=== PATIENT | female | born 1990 | race African-American/Black ===

== ENCOUNTER 2022-08-12 10:28 | Outpatient (CLI) | payer BC, SELFPAY ==
--- NOTE | 2022-08-12 10:15 | CRLHL7_ITS ---
For Patients: As a result of the Cures Act, medical imaging exams and procedure reports are released immediately into your electronic medical record. You may view this report before your referring provider. If you have questions, please contact your health care provider. INDICATION: First trimester scan, establish dates. COMPARISON: None. TECHNIQUE: Real-time clifford-scale imaging of the pelvis was performed. FINDINGS: Sonographic imaging demonstrates a single living intrauterine gestation. The embryo demonstrates a regular cardiac rate measuring 166 beats per minute. The embryo`s crown-rump length measurement of 2.5 cm corresponds to a gestational age of 9 weeks 1 day with a sonographic due date of 03/16/2023. There is a normal-appearing yolk sac. There are no gross abnormalities noted within the embryo at this early state of development. The gestational sac has a normal appearance. Incidental cyst is located adjacent to the gestational sac measuring 5 x 4 x 5 millimeters. There is no evidence of a perigestational hemorrhage. The amount of fluid within the sac appears appropriate for gestational age. The cervix is closed. The myometrium appears normal. The right ovary is normal. Incidental corpus luteal cyst noted. The left ovary is not visualized. There are no suspicious fluid collections noted in the cul-de-sac. IMPRESSION: Single living intrauterine with sonographic gestational age 9 weeks 1 day and sonographic due date 03/16/2023. Dictated by Augustus Marquez MD @ 08/12/2022 11:35:45 AM (Electronically Signed)
== END 2022-08-12 10:29 | disposition home or self-care (01) ==
PROVIDERS: Visit Provider Physician Assistant
DX: Z34.91 Encounter for supervision of normal pregnancy, unspecified, first trimester (principal); Z3A.09 9 weeks gestation of pregnancy
CPT/HCPCS: 76817

== ENCOUNTER 2022-08-12 11:37 | Outpatient (CLI) | payer BC, SELFPAY ==
[2022-08-12 16:41] LABS: Hepatitis B Surface Antigen* Negative (Negative)
[2022-08-12 16:52] LABS: HIV 1/2/P24 Combo Screen* Negative (Negative)
[2022-08-12 16:59] LABS: Hepatitis C Virus Antibody* Negative (Negative)
[2022-08-14 01:23] LABS: Rapid Plasma Reagin (RPR) Non Reactive (Non Reactive)
== END 2022-08-12 11:38 | disposition home or self-care (01) ==
PROVIDERS: Visit Provider Physician Assistant
DX: Z34.91 Encounter for supervision of normal pregnancy, unspecified, first trimester (principal); Z3A.08 8 weeks gestation of pregnancy
CPT/HCPCS: 86592; 86703; 86762; 86787; 86803; 86850; 86900; 86901; 87086; 87340; 87491; 87591

== ENCOUNTER 2022-11-04 12:59 | Outpatient (CLI) | payer BC, SELFPAY ==
--- NOTE | 2022-11-04 13:00 | CRLHL7_ITS ---
For Patients: As a result of the Century Cures Act, medical imaging exams and procedure reports are released immediately into your electronic medical record. You may view this report before your referring provider. If you have questions, please contact your health care provider. INDICATION: Evaluate anatomy. COMPARISON: 08/12/2022 TECHNIQUE: Real time clifford scale imaging of the fetus was performed as well as color Doppler analysis of the umbilical vessels. FINDINGS: Sonographic imaging demonstrates a single living intrauterine gestation. Fetus demonstrates a regular cardiac rate of 149 beats per minute. Fetus has a variable position. The placenta lies anteriorly without evidence of placenta previa. The placenta is located 9.8 cm from the internal cervical os. Amniotic fluid volume appears normal. Single deepest vertical pocket: 6.1 cm. The cervix is closed and measures 3.6 cm in length. The composite ultrasound gestational age is calculated at 22 weeks 2 days with an estimated sonographic due date of 03/08/2023. The estimated weight is 476 grams which lies at the greater than 97th %. The following biometric measurements were obtained: Biparietal diameter: 5.4 cm/22 weeks 2 days 95th% Head circumference: 19.6 cm/21 weeks 6 days 86th% Abdominal circumference: 17.3 cm/22 weeks 2 days 87th% Femur length: 3.8 cm/22 weeks 0 days 82nd% The HC/AC ratio measures: 1.13 range (1.05-1.22) On anatomic survey, there is a normal appearance of the cerebral ventricles, cavum septi pellucidi, cisterna magna and cerebellum. The nose, lips, and facial profile appear normal. The cervical, thoracic and lumbar spine are well visualized and appear normal. There is a normal four-chamber heart view and the left and right ventricular outflow tracts appear normal. The diaphragm and stomach appear normal. The kidneys and bladder also appear normal. There is a normal three-vessel cord and there is an eccentric cord insertion site. The four extremities appear normal. IMPRESSION: Sonographic gestational age 22 weeks 2 days and sonographic due date 03/08/2023. Sonographic age 11 days ahead of the clinical age. Estimated weight greater than 97th percentile. Abdominal circumference 87th percentile. No intrinsic abnormalities noted on anatomic survey. Dictated by Augustus Marquez MD @ 11/06/2022 12:24:44 PM (Electronically Signed)
== END 2022-11-04 13:00 | disposition home or self-care (01) ==
PROVIDERS: PCP Physician Assistant; Visit Provider Physician Assistant
DX: Z34.92 Encounter for supervision of normal pregnancy, unspecified, second trimester (principal); Z3A.20 20 weeks gestation of pregnancy
CPT/HCPCS: 76805

== ENCOUNTER 2023-02-17 14:25 | Outpatient (CLI) | payer BC, SELFPAY ==
[2023-02-18 17:47] LABS: Strep B DNA Probe Negative (Negative); Strep B Pen/Amox Allergy No
== END 2023-02-17 14:26 | disposition home or self-care (01) ==
LOC: NFLDREF 14:26
PROVIDERS: PCP Physician Assistant; Visit Provider Obstetrics & Gynecology
DX: Z34.93 Encounter for supervision of normal pregnancy, unspecified, third trimester (principal); Z3A.35 35 weeks gestation of pregnancy
CPT/HCPCS: 87081; 87653

== ENCOUNTER 2023-03-04 12:20 | Inpatient (IN) | payer BC, SELFPAY ==
[2023-03-04] VITALS (14 sets, daily range): BP systolic 104–126; BP diastolic 55–76; PULSE 64–93; RESP 14–16; TEMP 36.6–37.1; O2SAT 97–99; BMI 25.5
[2023-03-04] MEDS: LIDOCAINE 1 % PF 30 ML INJECTION (12:15)
[2023-03-04] MEDS: IBUPROFEN 600 MG TABLET PO ×2 (12:40→22:57)
--- NOTE | 2023-03-04 15:10 | W.PM.LDBA ---
Subjective History of Present Illness Date Seen: 03/04/23 Narrative: Patient is being admitted to Labor and Delivery in labor for delivery. She is a 32 year old at 37 6/7weeks gestation. Her full history and physical was dictated by Dr. Payne on 03/03/23. Please see this for details. Spouse: Max. Daughters: Stephanie Alexander. Baby: Boy! 1. Sickle cell screening: Father the baby (trait), patient AA (no trait) 2. FAS US: Estimated weight greater than 97th percentile. Abdominal circumference 87th percentile. Flu shot: Declines COVID: Vaccinated, due for booster Tdap: 01/19/2023 OB - Problem Based A/P Additional Plan (1) : Status: Acute Plan Patient delivered precipitously after arrival, in the triage room. I was present to assist delivery, please refer to delivery note. OB Exam Physical Exam Vital signs: Pulse Resp BP Pulse Ox O2 Del Method 77 16 118/68 97 Room Air 03/04/23 15:02 03/04/23 15:02 03/04/23 15:02 03/04/23 15:02 03/04/23 15:02 Detailed Labor and Delivery Exam Patient Gravid: Yes Dilation (cm): 10 Effacement (%): 100 Cervix position: mid Consistency: soft Tachysystole: No Contraction intensity: Strong/Firm Fetus (Single) Station: +2 Amniotic Membrane Status: SROM Amniotic Membrane Fluid Description: Clear Heart Rate Baseline: 130 Monitor Accelerations: Present Monitor Decelerations: Variable Correction Variability: Moderate (6-25)
--- NOTE | 2023-03-04 15:14 | W.PM.OBVAGDE ---
OB Procedure Vag Delivery Mother Details Mother Details: The patient is a 32 year-old, 4, Para 3, admitted on 03/04/23 at 37 3/7 Days gestation. : 4 Para: 3 Weeks Gestation: 37.3 Admission Date: 03/04/23 Additional Details Amniotic Membrane Status: SROM Amniotic Membrane Rupture Date: 03/04/23 Amniotic Membrane Fluid Description: Clear (Uncertain) Analgesia/Anesthesia Type: None Waterbirth: No Pitcoin: No Intrapartal Events: Precipitous Labor <3 Hrs Labor Onset: 05:00 Complete: 11:56 Pushin:04 Heart: heart tones during second stage were category 1. Delivery Details Delivery Date: 03/04/23 Delivery Time: 12:08 Route of delivery: Infant Gender: Male Viability: Alive; Heart Rate Present Position at Delivery: OA Delivery Details: Delivered over intact perineum via spontaneous vaginal delivery. Infant was placed on maternal abdomen.? Cord was clamped and cut after a 30-60 second delay. Nose and mouth were bulb suctioned.? Infant weight pending. 1 Minute Interval Total Score: 8 5 Minute Interval Total Score: 9 Additional Details Shoulder Dystocia: No Placenta Delivery Time: 12:14 Placental Delivery Description: Spontaneous Delivery repair: Vicryl Procedure Done: Global Blood Loss: 100 Laceration: Perineal - 2nd Degree Episiotomy Description: None Blood Loss Measurement Type: QBL Bakri Used: No Sponge/Need Count Correct: Yes Cord Vessel Description: 3 Vessels Event Summary Status: Mother and were stable after delivery. Disposition: floor
[2023-03-04] MEDS: ACETAMINOPHEN 500 MG TABLET 1000 MG PO (16:06)
[2023-03-05 04:00] VITALS: BP 111/68; PULSE 67; RESP 16; TEMP 36.6; O2SAT 99
[2023-03-05] MEDS: IBUPROFEN 600 MG TABLET PO (05:07)
[2023-03-05 07:27] LABS: Hemoglobin* 11.9 gm/dL (12.0-16.0)
[2023-03-05 08:15] VITALS: BP 105/63; PULSE 72; RESP 16; TEMP 36.6; O2SAT 99
[2023-03-05] MEDS: DOCUSATE SODIUM 100 MG CAPSULE PO (09:05)
--- NOTE | 2023-03-05 09:43 | PM.OBDSVD1 ---
DS: Providers Provider Time Seen by Provider: 09:44 Date Seen: 03/05/23 Date of admission: 03/04/23 12:20 Primary care physician: Not a Local Provider Admitting Clinician: Amanda Casillas MD Attending Physician on discharge: Amanda Casillas MD Date of Discharge: 03/05/23 DS: Diagnosis Discharge Diagnosis (1) Spontaneous vaginal delivery: Status: Acute Exam Narrative: Exam Narrative: VITAL SIGNS: As noted above. GENERAL APPEARANCE: Alert, cooperative female in no acute distress. MOOD & AFFECT: Normal. ABDOMEN: Soft, non-distended and appropriately tender, well contracted uterus. : Normal lochia. EXTREMITIES: Nonedematous. Well perfused. Nontender. Const: Vital Signs, click to edit/add: Vital Signs - 24 hr 03/04/23 12:15 03/04/23 12:15 03/04/23 12:30 Temperature 98.5 F Pulse Rate 88 86 Pulse Rate [Pulse Oximeter] Respiratory Rate 16 Blood Pressure 106/55 L 107/60 Blood Pressure [Ri ght Arm] Pulse Oximetry Oxygen Delivery Sd thod 03/04/23 12:30 03/04/23 12:45 03/04/23 12:45 Temperature Pulse Rate 93 Pulse Rate [Pulse Oximeter] Respiratory Rate 16 16 Blood Pressure 119/63 Blood Pressure [Ri ght Arm] Pulse Oximetry Oxygen Delivery Sd thod 03/04/23 13:00 03/04/23 13:00 03/04/23 13:15 Temperature 98.2 F Pulse Rate 73 77 Pulse Rate [Pulse Oximeter] Respiratory Rate 16 Blood Pressure 115/63 117/67 Blood Pressure [Ri ght Arm] Pulse Oximetry Oxygen Delivery Sd thod 03/04/23 13:15 03/04/23 13:29 03/04/23 13:30 Temperature Pulse Rate 74 Pulse Rate [Pulse Oximeter] Respiratory Rate 16 16 Blood Pressure 122/66 Blood Pressure [Ri ght Arm] Pulse Oximetry Oxygen Delivery Sd thod 03/04/23 13:46 03/04/23 13:47 03/04/23 14:00 Temperature Pulse Rate 74 89 Pulse Rate [Pulse Oximeter] Respiratory Rate 16 Blood Pressure 110/69 110/65 Blood Pressure [Ri ght Arm] Pulse Oximetry Oxygen Delivery Sd thod 03/04/23 14:00 03/04/23 15:01 03/04/23 15:02 Temperature Pulse Rate 77 Pulse Rate [Pulse Oximeter] 77 Respiratory Rate 16 16 Blood Pressure 118/68 Blood Pressure [Ri ght Arm] 118/68 Pulse Oximetry 97 Oxygen Delivery Me thod Room Air 03/04/23 19:30 03/04/23 22:56 03/05/23 04:00 Temperature 98.7 F 97.8 F 97.9 F Pulse Rate Pulse Rate [Pulse Oximeter] 80 64 67 Respiratory Rate 16 14 16 Blood Pressure Blood Pressure [Ri ght Arm] 104/64 126/76 111/68 Pulse Oximetry 99 98 99 Oxygen Delivery Me thod Room Air Room Air Room Air 03/05/23 08:15 Temperature 98 F Pulse Rate Pulse Rate [Pulse Oximeter] 72 Respiratory Rate 16 Blood Pressure Blood Pressure [Ri ght Arm] 105/63 Pulse Oximetry 99 Oxygen Delivery Me thod Room Air OB - DS: Summary Hospital Course Hospital Course: The patient is a 32 year old G 4 P 3013 at 37 6/7 weeks gestation that was admitted to the Center on 03/04/23 for delivery. She had an uncomplicated vaginal delivery. She delivered a viable male infant. She is breast feeding. the patient has done well. Peripartum Data delivery method: Vaginal Laceration description: Perineal - 2nd Degree Episiotomy description: None complications: none [place] Gender: Male Infant Discharge Plan: Home Status at Discharge Functional status at discharge: independent ambulation Overall status at discharge: patient is progressing back to baseline Time Spent with Patient Time attestation: Total time spent providing and/or coordinating discharge services: Time spent: Less than 30 minutes Discharge Plan Discharge Disposition: Home, Self-Care Date of Admission: 03/04/23 12:20 Attending Provider on Discharge: Amanda Casillas Primary Care Provider: Provider,Not a Local Condition: Stable Anticipated Discharge Date/Time: 03/05/23 09:47 Discharge Medications: New ibuprofen 600 mg Tablet 600 mg PO Q6H PRNQty: 30 0RF Continued DHA 200 mg capsule 200 mg PO DAILY Discharge Orders: Discharge Order (Routine); Ordered 03/05/23 Ordered By: Amanda Casillas Patient Education: OB Vaginal/Breast Feeding Activity Level: Activity as Tolerated Activity Detail: Nothing vaginally for 6 weeks. Discharge Diet: Regular Follow Up Appointments: Provider,Not a Local [Primary Care Provider] - Forms: [employer] Info Instructions Discharge Comments: Follow up in clinic in 2 weeks for mood and follow up, follow up in 6 weeks for routine visit.
[2023-03-05 12:30] VITALS: BP 115/72; PULSE 69; RESP 16; TEMP 36.9
== END 2023-03-05 15:58 | disposition home or self-care (01) | DRG 560 ==
LOC: OB 12:21
PROVIDERS: Admitting Provider Obstetrics & Gynecology; Visit Provider Obstetrics & Gynecology
DX: O80 Encounter for full-term uncomplicated delivery (principal); Z3A.37 37 weeks gestation of pregnancy; Z37.0 Single live birth
CPT/HCPCS: 36415; 85018; A9270; J2001